=== PATIENT | male | born 1995 | race Two or more races ===

== ENCOUNTER 2025-01-28 10:14 | Outpatient (AMB) | payer OTHER, SELFPAY ==
--- NOTE | 2025-01-28 08:28 | A.OFFVIS_ITS ---
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 He was previously seen at [facility] and is a newly diagnosed Type 1 diabetic. He would like to go on an insulin pump. An Omnipod have been ordered for him but this requires prior authorization. Diagnosed: 2023 Has polyuria and blurred vision went to ER glucose 700 and was admitted to the hospital. 04/2024 C-peptide 1.8 glucose 399 Charles D 65 insulin antibodies negative islet cell antibodies less than 1.4 Fib 4 score 0.57 Initially diagnosed with T2DM in 2023 Was initially started on treatment with metformin and Lantus. Lantus was discontinued 05/15 and bolus insulin was started. Current regimen: Lantus 27units per day Humalog 7units per meal Dexcom average glucose: [329 ] 14 day continuous glucose monitor report reviewed Glucose Managment indicator [11.2 ] % Days with CGM data [80 ] % TIme in ranges: [85 ] % very high (above 250) [ 11] % high ?(181-250) [3 ] % in range ?(70-180] [ 0] % low (69-55) [1 ] % ?very low (below 54) Interpretation consistently high few mild lows Reports low sugars 3 times in the past Treats lows with soda or candy. Has glucose sensor and rechecks with sensors Family history of T2DM in: Maternal grandmother later in life on insulin, sister with type 2 diabetes Has eyes checked yearly, last eye exam years ago Denies neuropathy Denies kidney disease Denies HLD not on statin Denies CAD. 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 Fib 4 calc previously done by [facility] ruled out fibosis ludy 0-1 2023 [facility] Medical History (Updated 01/28/25 @ 08:37 by Elisabeth Sauceda NP) Type 1 diabetes Newly diagnosed type 1 diabetes mellitus Surgical History (Updated 01/28/25 @ 10:21 by JAZZ Pantoja) Hx of hernia repair Family History (Updated 01/15/25 @ 10:12 by JAZZ Pantoja) Maternal Grandmother History of diabetes mellitus Sister History of diabetes mellitus Father No problems noted. Mother No problems noted. Social History (Updated 01/28/25 @ 10:20 by JAZZ Pantoja) Alcohol intake: current Alcohol intake frequency: a few times a week Patient Tobacco Use Status: Current everyday Tobacco user Physical Exam Vital Signs: Last Vital Signs Pulse 115 H 01/28/25 10:18 BP 118/78 01/28/25 10:18 Pulse Ox 95 01/28/25 10:18 Oxygen Delivery Method Room Air 01/28/25 10:18 BMI result Body Mass Index 34.8 Absence of Cushingoid features. Absence of acromegalic features. Neck exam reveals nl size thyroid about 15 gms. No thyroid nodules palpable. No carotid bruits present. Lungs CTA. Heart S1 S2, Reg R/R. No M/R/ G. Skin exam reveals absence of vitiligo or acanthosis nigricans. Abdominal exam reveals Soft NT/ND with NA BS. No organomegaly present. Const Other: Absence of Cushingoid features. Absence of acromegalic features. Neck exam reveals nl size thyroid about 15 gms. No thyroid nodules palpable. No carotid bruits present. Lungs CTA. Heart S1 S2, Reg R/R. No M/R G. Skin exam reveals absence of vitiligo or acanthosis nigricans. No edema Visual exam of foot performed. No ulcerations or open lesions. No inter digit maceration or fissuring. No onychomycosis, no callouses. Sensation intact to monofilament exam. Vibratory sensation is normal with 128 Hz tuning fork. Neck Other: . Extrem Other: Visual exam of foot performed. No ulcerations or open lesions. No onchomycosis, no callouses.Pulses 2 + distally Sensation intact to monofilament exam. Vibratory sensation sensed is intact with 128 Hz tuning fork Results AMB Hemoglobin A1c AMB Hemoglobin A1c 10.9 % Last Edit by JAZZ Pantoja on 01/28/25 10:3 3 Results Reviewed Results Reviewed: Laboratory Last Values Glucose (Clinic) 232 mg/dL (60-115) H 01/28/25 10:23 Assessment & Plan Assessment & Plan (1) Type 1 diabetes: Code(s): E10.9 - Type 1 diabetes mellitus without complications Category: Medical Plan: 29-year-old type 1 diabetic diagnosed in 2023 on basal bolus insulin with the an A1c of:12.1% today in the office. He is interested in going on an omnipod insulin pump. I reviewed the differences between an ilet pump with tubing and an omnipod and he would like to proceed. He will Need prior authorization. I reviewed with patient he would need to see CDE for prepump education and I can order supplies/pods once given the go ahead by the CDE. He will also see RD. He requested a prescription for wegovy which had been sent by previous endo, I advised him I will see, HIs weight has een stable for awhile and h2 is interested in losing weight. New dosing: Lantus 34 units at hs Lispro 8 units tid with meals can increase to 36 units and 12 units pre meal if average not less than 180. If having any lows after a particular meal ,he will not increase that meals pre meal target The patient had an opportunity to ask questions regarding treatment plan. The patient expressed understanding and agreement with the above treatment plan. The patient is aware they should contact our office by phone for worsening glucose readings or for any low blood sugars which may warrant a change in diabetes medication. Compliance is encouraged with medications and any followup testing/consults which may have been ordered. Orders: Orders AMB Hemoglobin A1c Today E10.9 - Type 1 diabetes mellitus without complications Patient Instructions: The patient was counseled to achieve a target A1C of 7% (154 avg). Fasting blood sugars should be 90-130 in the morning and less than 180 two hours after meals. Reviewed the relationship between poor diabetic control and the development of complications. Check your feet daily looking for any signs of infection, drainage, redness, ulceration and seek medical attention if this occurs. Break in shoes gradually and do not wear open-toed shoes or walk stocking footed or barefooted. Coding Diagnoses Type 1 diabetes E10.9
[2025-01-28 10:18] VITALS: BP 118/78; PULSE 115; O2SAT 95; BMI 34.8
[2025-01-28 10:28] LABS: Glucose, Whole Blood 232 mg/dL (60-115)
--- OUTSIDE RECORDS SUMMARY | 2025-01-28 12:02 | XMS_ITS | Clinical Summary ---
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 Assembler Name Role Phone Unavailable Primary Care Provider Unavailabl e Social History Tobacco Use Types Packs/Day Years Used Date Smoking Tobacco: Never Assessed Sex and Gender Information Value Date Recorded Sex Assigned at Not on file Legal Sex Male 1:38 PM EDT Gender Identity Not on file Sexual Orientation Not on file Plan of Treatment Health Maintenance Due Date Last Done Comments DTaP,Tdap,and Td Vaccines (1 - Tdap) 02/29/2012 Hepatitis B Vaccines (1 of 3 - 19+ 3-dose series) 02/29/2012 Depression Screening 05/24/2024 HIV Screening 05/24/2024 Hepatitis C Screening 05/24/2024 Social Influencers of Health Screening 05/24/2024 COVID-19 Vaccine ( - 2023-2 5 season) 2024 Influenza Vaccine (#1) 2024 HIB Vaccines Aged Out No longer eligi ble based on patient's age to complete this topic HPV Vaccines Aged Out No longer eligi ble based on patient's age to complete this topic Hepatitis A Vaccines Aged Out No long er eligible based on patient's age to complete this topic IPV Vaccines Aged Out No longer eligi ble based on patient's age to complete this topic MMR Vaccines Aged Out No longer eligi ble based on patient's age to complete this topic Meningococcal ACWY Vaccine Aged Out N o longer eligible based on patient's age to complete this topic Meningococcal B Vaccine Aged Out No l onger eligible based on patient's age to complete this topic Pneumococcal Vaccine: Pediat rics (0 to 5 Years) and At-Risk Patients (6 to 64 Years) Aged Out No longer eligible b ased on patient's age to complete this topic RSV Immunization Patients Un brent 20 months Aged Out No longer eligible b ased on patient's age to complete this topic Varicella Vaccines Aged Out No longer eligible based on patient's age to complete this topic
== END 2025-01-28 11:06 | disposition home or self-care (01) ==
LOC: HO.ENCR 10:14
PROVIDERS: Visit Provider Nurse Practitioner Adult Health
DX: E10.9 Type 1 diabetes mellitus without complications (principal)

== ENCOUNTER → 2025-01-28 10:14 | Outpatient (BNVA) | payer OTHER, SELFPAY | PROVIDERS: Visit Provider Nurse Practitioner Adult Health | DX: E10.9 Type 1 diabetes mellitus without complications (principal) | CPT/HCPCS: 82947; 83036; 99202 ==

== ENCOUNTER 2025-03-18 13:34 | Outpatient (AMB) | payer OTHER, SELFPAY ==
--- NOTE | 2025-03-18 07:54 | A.OFFVIS_ITS ---
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 Most recent HbA1c: 10.9%, 01/28/2025 Random Glucose- 264 mg/dL, Today Allergies No Known Allergies Allergy (Verified 01/28/25 10:19) Medication List - Last Reconciled 03/18/25 by Elisabeth Sauceda NP acetone (urine) test (Ketostix strips) As directed blood sugar diagnostic (OneTouch Ultra Test strips) As directed blood-glucose meter (Light Sciences OncologyTouch Ultra2 Meter) As directed blood-glucose sensor (Dexcom G7 Sensor device) As directed every 10 days glucagon 3 mg/actuation (Baqsimi) mg intranasal insulin glargine (Lantus Solostar U-100 Insulin) 34-38 units subcutaneously every evening; 30 days insulin lispro subcutaneously 3 times a day; 8-10 units tid before meals 30 days NS lancets (Light Sciences OncologyTouch Delica Plus Lancet) As directed metformin ER 500 mg PO DAILY pen needle, diabetic As directed HPI Comments Details: 30 YO male who is seen in f/u for TYpe 1 dm. He was previously seen at [facility] and is a newly diagnosed Type 1 diabetic. He would like to go on an insulin pump. An Omnipod had been ordered for him through [facility] but this requires prior authorization and he has not had pre pump education. He is scheduled to see both Yecenia FOSS and Liseth Bentley RD Diagnosed: 2023 Has polyuria and blurred vision went to ER glucose 700 and was admitted to the hospital. 04/2024 C-peptide 1.8 glucose 399 Charles D 65 insulin antibodies negative islet cell antibodies less than 1.4 Fib 4 score 0.57 Initially diagnosed with T2DM in 2023 Was initially started on treatment with metformin and Lantus. current diabetes medications: Lantus 34 units at hs he ran out a insulin 3 weeks ago and he reports he left a message that he needed his insulin which I did not receive. Lispro 8 units tid with meals Dexcom average glucose: 307 14 day continuous glucose monitor report reviewed Glucose Managment indicator 10.6 % Days with CGM data 91 % TIme in ranges: 82 % very high (above 250) 11 % high ?(181-250) 7 % in range ?(70-180] 0 % low (69-55) 0 % ?very low (below 54) Coefficient of variance 23% desired less than 36 Interpretation ; poor control with glucose readings running 150 above target postprandial excursions particularly after breakfast Reports low sugars 3 times in the past Treats lows with soda or candy. Has glucose sensor and rechecks with sensors Family history of T2DM in: Maternal grandmother later in life on insulin, sister with type 2 diabetes Has eyes checked yearly, last eye exam years ago Denies neuropathy Denies kidney disease Denies HLD not on statin Denies CAD. 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 Fib 4 calc previously done by [facility] ruled out fibosis ludy 0-1 2023 [facility] Medical History (Updated 01/28/25 @ 08:37 by Elisabeth Sauceda NP) Type 1 diabetes Newly diagnosed type 1 diabetes mellitus Surgical History (Updated 01/28/25 @ 10:21 by JAZZ Pantoja) Hx of hernia repair Family History (Updated 01/15/25 @ 10:12 by JAZZ Pantoja) Maternal Grandmother History of diabetes mellitus Sister History of diabetes mellitus Father No problems noted. Mother No problems noted. Social History (Updated 01/28/25 @ 10:20 by JAZZ Pantoja) Alcohol intake: current Alcohol intake frequency: a few times a week Patient Tobacco Use Status: Current everyday Tobacco user Physical Exam Vital Signs: Last Vital Signs Pulse 121 H 03/18/25 13:35 BP 120/82 03/18/25 13:35 BMI result Body Mass Index 35.2 Const Other: Absence of Cushingoid features. Absence of acromegalic features. Neck exam reveals nl size thyroid about 15 gms. No thyroid nodules palpable. Heart S1 S2, Reg R/R. No M/R G. Skin exam reveals absence of vitiligo or acanthosis nigricans. No edema Visual exam of foot performed. No ulcerations or open lesions. No inter digit maceration or fissuring. No onychomycosis, no callouses. Sensation intact to monofilament exam. Vibratory sensation is normal with 128 Hz tuning fork. Pulses positive distally Results Reviewed Results Reviewed: Laboratory Last Values Glucose (Clinic) 264 mg/dL (60-115) H 03/18/25 13:43 Assessment & Plan Assessment & Plan (1) Type 1 diabetes: Code(s): E10.9 - Type 1 diabetes mellitus without complications Category: Medical Plan: Newly diagnosed type 1 diabetes charles positive. He ran out of his basal insulin for 3 weeks. He will restart basal insulin Lantus 34-38 units in the evening Humalog 8-10 units 15 minutes before the meal He will meet with Yecenia Juárez CDE and Liseth Bentley RD to start the pre pump process. He is interested in Omnipod We spent the bulk of today's visit discussing the targets he needs to achieve to prevent diabetic complications. The patient had an opportunity to ask questions regarding treatment plan. The patient expressed understanding and agreement with the above treatment plan. The patient is aware they should contact our office by phone for worsening glucose readings or for any low blood sugars which may warrant a change in diabetes medication. Compliance is encouraged with medications and any followup testing/consults which may have been ordered. Medications: New insulin glargine (Lantus Solostar U-100 Insulin) 34-38 units subcutaneously every evening; 30 days 12 mL 6RF insulin lispro subcutaneously 3 times a day; 8-10 units tid before meals 30 days 6 mL 3RF NS pen needle, diabetic As directed qid 200 ea 3RF blood-glucose sensor (Dexcom G7 Sensor device) As directed every 10 days 3 ea 6RF Coding Level of Care Code Est Pt Level 4 (54075) Complex EM visit Add On G2211 Diagnoses Type 1 diabetes E10.9 Time Spent (min) 30 Comment Time spent reviewing labs/provider notes, face to face, chart doc
[2025-03-18 13:35] VITALS: BP 120/82; PULSE 121; BMI 35.2
--- OUTSIDE RECORDS SUMMARY | 2025-03-18 13:44 | XMS_ITS | Clinical Summary ---
Author Organization [facility] ity Address [address] [place] [address] Care Team Providers Care Cheese Wrapper Name Role Phone Unavailable Primary Care Provider [...] - 2023-2 5 season) 2024 Influenza Vaccine (Season Ended) 2025 HIB Vaccines Aged Out No longer eligi [...]
[2025-03-18 14:10] LABS: Glucose, Whole Blood 264 mg/dL (60-115)
== END 2025-03-18 14:01 | disposition home or self-care (01) ==
LOC: HO.ENCR 13:35
PROVIDERS: Visit Provider Nurse Practitioner Adult Health
DX: E10.9 Type 1 diabetes mellitus without complications (principal)
CPT/HCPCS: 99214; G2211

== ENCOUNTER → 2025-03-18 13:34 | Outpatient (BNVA) | payer OTHER, SELFPAY | PROVIDERS: Visit Provider Nurse Practitioner Adult Health | DX: E10.9 Type 1 diabetes mellitus without complications (principal); Z79.4 Long term (current) use of insulin | CPT/HCPCS: 82947; 99212 ==

== ENCOUNTER 2025-03-27 13:04 | Outpatient (AMB) | payer OTHER, SELFPAY ==
--- NOTE | 2025-03-27 13:54 | MHC.AMDMED ---
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 Required: No Accompanied by: Self / Same As Patient Allergies No Known Allergies Allergy (Verified 01/28/25 10:19) HPI Comprehensive Diabetes Asmnt Most Recent Diabetes Results: No Data to Display [facility] Medical History (Updated 01/28/25 @ 08:37 by Elisabeth Sauceda NP) Type 1 diabetes Newly diagnosed type 1 diabetes mellitus Surgical History (Updated 01/28/25 @ 10:21 by JAZZ Pantoja) Hx of hernia repair Family History (Updated 01/15/25 @ 10:12 by JAZZ Pantoja) Maternal Grandmother History of diabetes mellitus Sister History of diabetes mellitus Father No problems noted. Mother No problems noted. Social History (Updated 01/28/25 @ 10:20 by JAZZ Pantoja) Alcohol intake: current Alcohol intake frequency: a few times a week Patient Tobacco Use Status: Current everyday Tobacco user Assessment & Plan Assessment & Plan (1) Type 1 diabetes: Code(s): E10.9 - Type 1 diabetes mellitus without complications Plan: Pump Assessment: Type of DM: type 1 Dx at age: 29 Previous DKA: denies Current Insulin Rx: MDI Patient takes insulin as prescribed: yes Patient? checks BG with dexcom G7 Downloaded meter today? yes Patient? reports glycemic control as: poor Most recent Hgb A1C: 10.2% Frequency of low BG: rarely Low BG treatment: juice Frequency of high BG: daily Does patient check Ketones? no Patient reports he does have ketone strips at home. Reviewed with patient rules about testing for ketones. Written instructions given to patient in visit summary Has pt been on a pump in the past? no Reviewed insulin pump basics today with Patient. Explained pros and cons of insulin pumps. Showed pt various pumps, infusion sets, and cgms currently available. Reviewed need to wear pump 24/7 and need to change infusion set every 3 days. Also stressed importance of frequent BG checks, 4x daily minimum or use pump that is integrated with CGM.? TDD:56 units Patient demonstrated motivation for continued insulin pump education and understands the need to complete education prior to starting insulin pump for best outcome. Pt would like to go with Omnipod 5 Carb Counting Basic Patient presents for appointment carbohydrate counting education. Reviewed the basic principles of carbohydrate counting.? Insulin to carb ratio, and insulin sensitivity factor calculated based on rule of 450 for insulin to carb ratio, and rule of 1500 for insulin sensitivity factor. Instructed patient on the importance of accurate calculation of the amount of carbs per meal for optimal glucose control Reviewed how to calculate mealtime bolus with insulin to carb ratio Reviewed how to calculate correction dose with insulin sensitivity factor Insulin to Carbohydrate ratio: 1:8 Correction factor:1:27 Target:140 mg/dL Boluscalc qian downloaded on Pt's cell phone Patient given healthy plate handout, for resource for carbohydrate counting Encourage patient to fill out food logs, estimating carbohydrates at meals, noting glucose number prior to meal, and how many units of insulin taken prior to meals Pt able to calculated needed insulin based on estimated carbohydrate content Instructed patient that there may need to be adjustment to insulin to carb ratio and sensitivity factor based on blood glucose trends. Portions of this note were created using voice recognition software, please excuse any words or phrases that may have been misinterpreted. Patient Instructions: DIABETES PROBLEMS HOMECARE INSTRUCTIONS? for High Blood Sugar and When to Test for Ketones Hyperglycemia is the technical term for high blood glucose (blood sugar). High blood sugar happens when the body has too little insulin or when the body can't use insulin properly. What causes hyperglycemia? A number of things can cause hyperglycemia: If you have type 1, you may not have given yourself enough insulin. ? If you have type 2, your body may have enough insulin, but it is not as effective as it should be. You ate more than planned or exercised less than planned. You have stress from an illness, such as a cold or flu. You have other stress, such as family conflicts or school or dating problems. How to lower your blood sugar level. ? Take medications as directed by physician. ? Drink extra water or noncaffeinated, nonsugared drinks to prevented hydration. ? Exercise if you are not sick However, if your blood sugar is above 250 mg/dl, check your urine for ketones. If you have ketones, do not exercise Exercising when ketones are present may make your blood sugar level go even higher. You'll need to work with your doctor to find the safest way for you to lower your blood sugar level. Regularly check blood sugar or urine for sugar and acetone during illness. Diabetic ketoacidosis (DKA) Is serious condition that can lead to diabetic coma (passing out for a long time) or even . When your cells don't get the glucose they need for energy, your body begins to burn fat for energy, which produces ketones. Ketones are chemicals that the body creates when it breaks down fat to use for energy. The body does this when it doesn?t have enough insulin to use glucose, the body?s normal source of energy. When ketones build up in the blood, they make it more acidic. They are a warning sign that your diabetes is out of control or that you are getting sick. Symptoms of Diabetic Ketoacidosis (DKA) ? DKA usually develops slowly. But when vomiting occurs, this life-threatening condition can develop in a few hours. Early symptoms include the following: ? Thirst or a very dry mouth ? Frequent urination ? High blood glucose (blood sugar) levels ? High levels of ketones in the urine ? Then, other symptoms appear: ? Constantly feeling tired ? Dry or flushed skin ? Nausea, vomiting, or abdominal pain ? (Vomiting can be caused by many illnesses, not just ketoacidosis. If vomiting continues for more than 2 hours, contact your health care provider.) ? Difficulty breathing ? Fruity odor on breath ? A hard time paying attention, or confusion When should you test for ketones? It is advisable to check for ketones under the following conditions when: Your blood glucose is higher than 250mg/dl. Feeling nauseated, throwing up, or have pains in your abdominal region. Have a cold or flu. Have general body fatigue. Feel thirsty or have a very dry mouth. Have flushed skin. Have a fruity breath or a hard time breathing. You feel perplexed or in fog. How to Test Urine for Ketones You can detect ketones with a simple urine test using a test strip, similar to a blood testing strip. Ask your health care provider when and how you should test for ketones. Many experts advise to check your urine for ketones when your blood glucose is more than 250 mg/dl. When you are ill (when you have a cold or the flu, for example), check for ketones every 4 to 6 hours. And check every 4 to 6 hours when your blood sugar is more than 250 mg/dl. Also, check for ketones when you have any symptoms of DKA. How to lower your blood sugar level. ? Take medications as directed by physician. ? Drink extra water or noncaffeinated, nonsugared drinks to prevented hydration. ? Exercise if you are not sick However, if your blood sugar is above 250 mg/dl, check your urine for ketones. If you have ketones, do not exercise Exercising when ketones are present may make your blood sugar level go even higher. You'll need to work with your doctor to find the safest way for you to lower your blood sugar level. Regularly check blood sugar or urine for sugar and acetone during illness Coding Level of Care Code Est Pt Level 1 (37589) Diagnoses Type 1 diabetes E10.9
--- OUTSIDE RECORDS SUMMARY | 2025-03-27 15:16 | XMS_ITS | Clinical Summary ---
Author Organization [facility]y Address [address] [place] [address] Care Team Providers Care Manager Intensive Care Unit Name Role Phone Unavailable Primary Care Provider [...]
== END 2025-03-27 13:58 | disposition home or self-care (01) ==
LOC: HO.ENCR 13:05
PROVIDERS: Visit Provider Registered Nurse Diabetes Educator
DX: E10.9 Type 1 diabetes mellitus without complications (principal)

== ENCOUNTER → 2025-03-27 13:04 | Outpatient (BNVA) | payer OTHER, SELFPAY | PROVIDERS: Visit Provider Registered Nurse Diabetes Educator | DX: E10.9 Type 1 diabetes mellitus without complications (principal); Z79.4 Long term (current) use of insulin; Z96.41 Presence of insulin pump (external) (internal) | CPT/HCPCS: 99211 ==

== ENCOUNTER 2025-04-28 09:00 | Outpatient (AMB) | payer OTHER, SELFPAY ==
--- NOTE | 2025-04-28 09:02 | A.OFFVIS_ITS ---
VS Expanded 04/28/25 09:16 04/28/25 09:27 Height 5 ft 9 in 5 ft 9 in Weight 234 lb 12.677 oz 235 lb BMI 34.7 34.7 Intake Visit Reasons: T2DM Allergies No Known Allergies Allergy (Verified 01/28/25 10:19) Nutrition Presentation Details: Pt presents for MNT for T1DM Pt reports limited understanding regarding carbohydrates/portion sizes/ Pt has many questions regarding glucose sensors and differences between gluc sensor and finger sticks. He is concerned about hypoglycemic events. Pt was advised on the difference between both particularly if rapid glucose changes are happening and was advised on the importance of confirming any hypoglycemic events by finger stick and treating hypoglycemia by following rule of 15. Today we reviewed basic carbohydrate counting during this visit. FFK-Gwolngs-Gl.Jeor Equation Height: 5 ft 9 in Weight: 235 lb Resting Metabolic Rate: 2006.81 Calculated Activity Level: Sedentary Calories Needed to Maintain Weight: 2409.37 Diagnosis Nutrition problem #1: food nutri know defi As related to (etiology) #1: diagnosis (type 1 DM dx at age 29) As evidenced by (sign/symptom) #1: knowledge deficit of diet [facility] Medical History (Updated 01/28/25 @ 08:37 by Elisabeth Sauceda NP) Type 1 diabetes Newly diagnosed type 1 diabetes mellitus Surgical History (Updated 01/28/25 @ 10:21 by JAZZ Pantoja) Hx of hernia repair Family History (Updated 01/15/25 @ 10:12 by JAZZ Pantoja) Maternal Grandmother History of diabetes mellitus Sister History of diabetes mellitus Father No problems noted. Mother No problems noted. Social History (Updated 01/28/25 @ 10:20 by JAZZ Pantoja) Alcohol intake: current Alcohol intake frequency: a few times a week Patient Tobacco Use Status: Current everyday Tobacco user Assessment & Plan Assessment & Plan (1) Type 1 diabetes: Code(s): E10.9 - Type 1 diabetes mellitus without complications Category: Medical Plan: Wt: 107 Kg ( 05/16 ) Est kcal needs as per MSJ: 2400 (40% carb, 30% protein/fat) Est fluid needs as per 25-30 ml/d: 3200 Est prot per day as per 1 g/kg bw: 100- Recommend fiber intake : 8-10 g per day and gradually increase to 25-28 g per day for women and 35-38 g for men or as tolerated Recommend sodium intake per day : less than 2300 mg Educated patient on: ( R = reviewed V = verbalizes understanding N/R = needs review N/A = not applicable * Food sources of carbohydrate, adequate serving sizes and its role in various health conditions: R * Differences between complex carbohydrates a simple carbohydrates, role of fiber in diet: R * Lean protein sources of foods: R * Differences between types of fats and role in diet (mono on saturated fat fatty acids, saturated fatty acids, trans fats): R V N/R * Food sources of sodium in salt and healthy modifications for heart health in kidney health: R V R/V * Vitamins and minerals: R V N/R * Healthy plate method concept: R * Physical activity: Benefits a precaution: R V N/R * Hypoglycemia protocol (rule of 15): R * Dietary prevention of Hyperglycemia: R Patient Instructions: Work on measuring portion sizes and counting total carbohydrate at dinner time , goal less than 100 g total carb at dinner for now follow healthy plate method Choose water, low sugar beverages and choose foods lower in fat (baked vs fried starches in particular) Coding Level of Care Code Nutr Indiv Intake (75485) Diagnoses Type 1 diabetes E10.9 Time Spent (min) 30
[2025-04-28 09:16] VITALS: BMI 34.7
--- OUTSIDE RECORDS SUMMARY | 2025-04-28 09:21 | XMS_ITS | Clinical Summary ---
Author Organization [facility] ity Address [address] [place] [address] Care Team Providers Care Forest Ecology Professor Name Role Phone Unavailable Primary Care Provider [...]
[2025-05-08 15:22] VITALS: BMI 34.7
== END 2025-04-28 09:47 | disposition home or self-care (01) ==
LOC: HO.ENCR 09:01
PROVIDERS: Visit Provider Dietitian, Registered
DX: E10.9 Type 1 diabetes mellitus without complications (principal)

== ENCOUNTER → 2025-04-28 09:00 | Outpatient (BNVA) | payer OTHER, SELFPAY | PROVIDERS: Visit Provider Dietitian, Registered | DX: E10.9 Type 1 diabetes mellitus without complications (principal); Z71.3 Dietary counseling and surveillance | CPT/HCPCS: 97802 ==

== ENCOUNTER 2025-06-11 10:11 | Outpatient (AMB) | payer OTHER, SELFPAY ==
[2025-06-11 10:27] VITALS: BMI 35.4
--- NOTE | 2025-06-11 10:27 | A.OFFVIS_ITS ---
VS Expanded 06/11/25 10:27 Height 5 ft 9 in Weight 239 lb 6.752 oz BMI 35.4 Intake Visit Reasons: T1DM Allergies No Known Allergies Allergy (Verified 01/28/25 10:19) Nutrition Presentation Details: Pt presents for MNT f/u for T1DM, Pt reports working on gradual diet modifications. Understands carbohydrate counting: yes- however reports challenges due to tasting foods when cooking /baking or when choosing foods away from home, typically higher fat foods BG: no download available at time of the appt Pt needs review regarding relationship of high fat/carb food and BG level [facility] Medical History (Updated 01/28/25 @ 08:37 by Elisabeth Sauceda NP) Type 1 diabetes Newly diagnosed type 1 diabetes mellitus Surgical History (Updated 01/28/25 @ 10:21 by JAZZ Pantoja) Hx of hernia repair Family History (Updated 01/15/25 @ 10:12 by JAZZ Pantoja) Maternal Grandmother History of diabetes mellitus Sister History of diabetes mellitus Father No problems noted. Mother No problems noted. Social History (Updated 01/28/25 @ 10:20 by JAZZ Pantoja) Alcohol intake: current Alcohol intake frequency: a few times a week Patient Tobacco Use Status: Current everyday Tobacco user Assessment & Plan Assessment & Plan (1) Type 1 diabetes: Code(s): E10.9 - Type 1 diabetes mellitus without complications Category: Medical Plan: Wt: 107 Kg ( 05/16 ), 108,6 kg (06/16) Est kcal needs as per MSJ: 2400 (40% carb, 30% protein/fat) Est fluid needs as per 25-30 ml/d: 3200 Est prot per day as per 1 g/kg bw: 100- Recommend fiber intake : 8-10 g per day and gradually increase to 25-28 g per day for women and 35-38 g for men or as tolerated Recommend sodium intake per day : less than 2300 mg Educated patient on: ( R = reviewed V = verbalizes understanding N/R = needs review N/A = not applicable * Food sources of carbohydrate, adequate serving sizes and its role in various health conditions: R * Differences between complex carbohydrates a simple carbohydrates, role of fiber in diet: R * Lean protein sources of foods: R * Differences between types of fats and role in diet (mono on saturated fat fatty acids, saturated fatty acids, trans fats): R basic and relationship of fats to insulin resistance leading to elevated bg 4-6 hr after meals * Food sources of sodium in salt and healthy modifications for heart health in kidney health: R V R/V * Vitamins and minerals: R V N/R * Healthy plate method concept: R * Physical activity: Benefits a precaution: R V N/R * Hypoglycemia protocol (rule of 15): R * Dietary prevention of Hyperglycemia: R Patient Instructions: Choose low fat food options when eating out , ex have sand/burger and salad vs fries, working on lowering total fat intake Coding Level of Care Code Nutr Indiv Subseq (58091) Diagnoses Type 1 diabetes E10.9 Time Spent (min) 30
--- OUTSIDE RECORDS SUMMARY | 2025-06-11 11:22 | XMS_ITS | Clinical Summary ---
Author Organization [facility] ity Address [address] [place] [address] Care Team Providers Care Convertible Power Shovel Operator Name Role Phone Unavailable Primary Care Provider [...] of 3 - 19+ 3-dose series) 02/29/2012 HIV Screening 05/24/2024 Hepatitis C Screening 05/24/2024 Social Influencers of Health Screening 05/24/2024 COVID-19 Vaccine (1 - 2023-2 5 season) 2024 Depression Screening 10/23/2024 Influenza Vaccine (#1) 2025 HIB Vaccines Aged Out No longer [...] 5 Years) and At-Risk Patients (6 to 49 Years) Aged Out No longer eligible b ased on patient's age to complete this topic RSV Immunization Patients Un brent 20 months Aged Out No longer eligible b ased on patient's age to complete this topic Varicella Vaccines Aged Out No longer eligible based on patient's age to complete this topic
--- OUTSIDE RECORDS SUMMARY | 2025-06-11 11:22 | XMS_ITS | Clinical Summary ---
Author Organization [facility] Address [address] [address] Phone Care Team Providers Care Medical Social Worker Name Role Phone Unknown, Unknown Primary Care Provider Merced labjay Allergies No known active allergies Medications blood sugar diagnostic Strp strips 1 each by Miscellaneous route 4 (four) times a day before meals and nightly. 100 strip 05/18/20 24 Active blood-glucose meter kit Use as instructed 1 kit 05/18/20 24 Active lancets 26 gauge Misc Inject 1 each into the skin 4 (four) times a day before meals and nightly. 100 each 05/18/20 24 Active metFORMIN (GLUCOPHAGE-XR) 500 MG 24 hr tablet Take 1 tablet (500 mg total) by mouth daily with dinner. 30 tablet 05/18/20 24 Active blood-glucose sensor (DEXCOM G7 SENSOR) DeviIndications:T ype 1 diabetes mellitus with hyperglycemia Apply to the skin every 10d to be used for continuous glucose monitoring 9 each 3 05/31/20 24 Active glucagon 3 mg/actuation SpryIndications:T ype 1 diabetes mellitus with hyperglycemia 1 spray by Nasal route once as needed (hypoglycemia and unable to take po). 3 each 11 05/31/20 24 Active acetone, urine, test (KETONE URINE TEST) StrpIndications:T ype 1 diabetes mellitus with hyperglycemia To be used for ketone monitoring if BG > 250 mg x 2 as per physician instructions 100 strip 4 05/31/20 24 Active insulin lispro (HUMALOG KWIKPEN INSULIN) 100 unit/mL injection penIndications:Ty pe 1 diabetes mellitus with hyperglycemia Inject SC TID based on meal size and physician dosing scale ( max 30 units/day) 15 mL 3 06/06/20 24 Active insulin pen needles, disposable, 32 gauge x 1/4 NdleIndications:T ype 1 diabetes mellitus with hyperglycemia To be used with QID injections 300 each 4 07/29/20 24 Active blood-glucose sensor (DEXCOM G7 SENSOR) Florina 1 each by Miscellaneous route Every 10 Days. 9 each 4 09/05/20 24 025 Active OMNIPOD 5 G6-G7 INTRO KT,GEN5, CrtgIndications:D iabetes mellitus type 1 Inject 1 each under the skin every 3 (three) days. 1 each 01/01/20 25 Active OMNIPOD 5 G6-G7 PODS, GEN 5, CrtgIndications:D iabetes mellitus type 1 Inject 1 each under the skin every 3 (three) days. 30 each 3 01/19/20 25 Active insulin glargine 100 unit/mL (3 mL) InPn injection pen Inject 22 Units under the skin nightly at bedtime. 21 mL 3 01/19/20 25 Active tirzepatide, weight loss, (ZEPBOUND) 2.5 mg/0.5 mL subcutaneous penIndications:Cl ass 2 obesity with body mass index (BMI) of 36.0 to 36.9 in adult, unspecified obesity type, unspecified whether serious comorbidity present Inject 0.5 mL (2.5 mg total) under the skin every 7 days. 2 mL 11 01/19/20 25 026 Active Active Problems Problem Noted Date Diagnosed Date Hyperglycemia 05/17/2024 Social History Tobacco Use Types Packs/Day Years Used Date Smoking Tobacco: Never Assessed Education Answer Date Recorded Are you interested in more education? Not on fern e 05/17/2024 Are you concerned about learning? Not on file 05/17/2024 No 05/17/2024 No 05/17/2024 Digital Access Answer Date Recorded No 05/17/2024 No 05/17/2024 Reliable internet access at home? Not on file 05/17/2024 Device with a working camera? Not on file Intimate Partner Violence Answer Date R ecorded Are you denied basic needs s uch as food, clothing, or medical care? No 05/17/2024 In the past 12 months have y ou been in a relationship with a person who hurts, threatens, or tries to control you? No 05/17/2024 Are you denied basic needs s uch as food, clothing, or medical care? No 05/17/2024 In the past 12 months have y ou been in a relationship with a person who hurts, threatens, or tries to control you? No 05/17/2024 Sex and Gender Information Value Date Recorded Sex Assigned at Male 05/17/2024 8:46 PM EDT Legal Sex Male 5:46 PM EDT Gender Identity Male 05/17/2024 8:46 PM EDT Sexual Orientation Straight 05/17/2024 8: 48 PM EDT Last Filed Vital Signs Vital Sign Reading Time Taken Comments Blood Pressure 120/75 09/05/2024 2:30 PM EST Pulse 94 09/05/2024 2:30 PM EST Temperature 36.6 C (97.9 F) 05/18/2024 3:04 PM EDT Respiratory Rate 16 05/18/2024 5:15 PM EDT Oxygen Saturation 99% 09/05/2024 2:30 PM EST Inhaled Oxygen Concentration - - Weight 109.5 kg (241 lb 7 oz) 09/05/2024 2:30 PM EST Height 174 cm (5' 8.5 ) 06/07/2024 4:35 PM EDT Body Mass Index 36.18 06/07/2024 4:35 PM EDT Plan of Treatment Health Maintenance Due Date Last Done Comments Adult Td,Tdap Booster 1993 DEPRESSION SCREENING 2005 SMOKING Hx and SMOKELESS TOBACCO SCREENING 2006 HEPATITIS C SCREENING 2011 HIV ONE-TIME SCREENING (18-6 5 YEARS) 2011 LIPID PANEL 2011 PNEUMOCOCCAL VACCINES (0-49 years) (1 of 2 - PCV) 02/29/2012 DIABETIC EYE EXAM 05/26/2024 URINE MICROALBUMIN/CREATININ E RATIO 05/26/2024 COVID-19 VACCINE (1 - 2023-2 5 season) 2024 HEMOGLOBIN A1C 12/06/2024 09/05/2024, 05/18/2024 BLOOD PRESSURE 03/05/2025 09/05/2024 CREATININE LEVEL 05/18/2025 05/18/2024, 05/17/2024 HEPATITIS A VACCINES Aged Out No long er eligible based on patient's age to complete this topic HIB VACCINES Aged Out No longer eligi ble based on patient's age to complete this topic MENINGOCOCCAL VACCINES (ACWY) Aged Out No longer eligible based on patient's age to complete this topic MENINGOCOCCAL VACCINES (B) Aged Out N o longer eligible based on patient's age to complete this topic Medical Devices Not on file Procedures Procedure Name Priority Date/Time Associated Diagnosis Comments POCT HEMOGLOBIN A1C Routine 09/05/2024 2 :16 PM EST BASIC METABOLIC PANEL STAT 05/18/2024 9:22 AM EDT from Last 3 Months or Most Recently Relevant to Health Maintenance Results * (ABNORMAL) POCT Hemoglobin A1c (09/05/2024 2:16 PM EST) HGB A1C 8.4(H) 4.2 - 5.6 % [facility] Comment:HbA1c levels 5.7-6.4 % represent pre-diabetes, indicating impaired glucose control and an increased risk of developing diabetes. The diagnostic HbA1c level for diabetes is 6.5% or greater. HbA1c levels <4.2% may indicate a hemoglobinopathy or anemia, and an alternative method is recommended to monitor glucose control. 09/05/2024 2:16 PM EST 09/05/2024 2:46 PM EST Latasha Montejo MD, PhD POINT OF CARE TEST ORDERABLES Final Result [address] [address] * (ABNORMAL) Basic metabolic panel (05/18/2024 9:22 AM EDT) SODIUM 138 136 - 145 mmol/L [facility] POTASSIUM 3.8 3.4 - 5.1 mmol/L [facility] CHLORIDE 101 98 - 107 mmol/L [facility] Comment: CO2 23 22 - 31 mmol/L [facility] BUN 14 6 - 23 mg/dL [facility] CREATININE 0.73 0.50 - 1.20 mg/dL [facility] Comment: GLUCOSE 313(H) 70 - 100 mg/dL [facility] CALCIUM 8.5(L) 8.8 - 10.7 mg/dL [facility] EGFR >120 >59 mL/min/1.7 3m2 [facility] Comment: Estimated glomerular filtration rate calculated using the CKD-EPI refit equation. ANION GAP 14 7 - 17 mmol/L [facility] Comment: Blood 05/18/2024 9:22 AM EDT 05/18/2024 9:33 AM EDT us Adelina Desir PA-C LAB BLOOD ORDERABLES Final Re sult Performing Organization Address City/State/[facility] Co de Phone Number [facility] [address] [place] [phone] from Last 3 Months or Most Recently Relevant to Health [place] [address] [place] [address] [place] [place] [address] [facility] [place] [id number] Care Teams Medical Social Worker Relationship Specialty Start Date End Date Unknown, Unknown, PCP - General 05/17/24 Additional Source Comments The information contained in this document represents components of the legal health record. It is not the complete legal health record.[facility]
== END 2025-06-11 10:57 | disposition home or self-care (01) ==
LOC: HO.ENCR 10:12
PROVIDERS: Visit Provider Dietitian, Registered
DX: E10.9 Type 1 diabetes mellitus without complications (principal)

== ENCOUNTER → 2025-06-11 10:11 | Outpatient (BNVA) | payer OTHER, SELFPAY | PROVIDERS: Visit Provider Dietitian, Registered | DX: E10.9 Type 1 diabetes mellitus without complications (principal) | CPT/HCPCS: 97803 ==

== ENCOUNTER 2025-07-26 22:49 | Emergency (ER) | payer OTHER, SELFPAY ==
--- NOTE | ~2025-07-26 | CT_ITS ---
CLINICAL HISTORY: abd pain, hx volvulu and hernias CT abdomen and pelvis with contrast Comparison: None provided Findings: Heart size is normal. The left lung is hyperlucent and diminutive. The left pulmonary artery is diminutive. Left thoracic cavity is small. Diffuse fatty infiltration of the liver. Liver is enlarged. Adrenal glands, kidneys, pancreas and gallbladder unremarkable. There is a large wide necked ventral hernia containing the stomach, tail of the pancreas, the spleen, the majority of the bowel loops and the portal splenic confluence. No bowel obstruction, pneumoperitoneum, or pneumatosis. No bowel wall thickening. No ascites. No acute fracture. IMPRESSION: No acute findings. Large wide neck ventral hernia containing stomach, tail of pancreas, spleen and majority of bowel loops. Diminutive hyperlucent left lung with diminutive left pulmonary artery. Fatty infiltration of the liver. This document has been electronically signed by: Chuck Maldonado MD on 07/27/2025 03:08:57
[2025-07-26 23:00] VITALS: BP 145/90; PULSE 98; RESP 14; TEMP 36.7; O2SAT 96; BMI 35.4
[2025-07-26 23:32] LABS: Hematocrit 42.7 % (42.0-52.0); Hemoglobin 15.2 g/dl (14.0-18.0); Imm Gran Abs Auto 0.04 X10*3/uL (0.00-0.03); Imm Gran Pct Auto 0.3 % (0.0-0.4); Lymphocytes Absolute Auto 1.9 X10*3/uL (1.2-4.9); MANUAL DIFF FLAG NO; Mean Corpuscular HGB Conc 35.6 g/dl (31.0-36.0); Mean Corpuscular Hemoglobin 29.5 pg (27.0-33.0); Mean Corpuscular Volume 82.9 fL (80.0-98.0); NRBC Abs Auto 0.000 X10*3/uL (0.0-0.012); NRBC Pct Auto 0.0 /100WBC (0.0-0.2); Platelet Count 291 X10*3/uL (160-400); Red Blood Count 5.15 X10*6/uL (4.60-5.80); White Blood Count 12.9 X10*3/uL (4.8-10.8)
--- NOTE | 2025-07-26 23:32 | MHC.EDTECH ---
Patient brought into triage areas, labs,and urine sample obtained and sent to lab.
[2025-07-26 23:43] LABS: Appearance Urine Clear; Glucose Urine UA 250 mg/dL (Negative); PH 5.5 (5.0-9.0); Specific Gravity - Urine 1.025 (1.005-1.025); UMIC TRIGGER UACC YES
[2025-07-26 23:45] LABS: UACC Culture Trigger YES
[2025-07-26 23:48] LABS: Alanine Aminotransferase 33 U/L (0-40); Albumin Level 4.5 g/dL (3.5-5.0); Alkaline Phosphatase 70 U/L (39-117); Anion Gap 13 (12-20); Aspartate Amino Transferase 18 U/L (5-37); Blood Urea Nitrogen 10 mg/dL (9-16); Calcium 9.4 mg/dL (8.4-10.2); Carbon Dioxide 23 mmol/L (22-29); Chloride 105 mmol/L (96-108); Creatinine Clr Calc Pharmacy 192.4; Estimated Glomerular Filt Rate > 60; Lipase 11 U/L (8-78); Magnesium 1.9 mg/dL (1.6-2.6); Potassium 3.7 mmol/L (3.3-5.1); Sodium 137 mmol/L (135-145); Total Protein 7.5 g/dL (6.5-8.0)
[2025-07-27 01:47] VITALS: BP 119/75; PULSE 101; RESP 20; TEMP 36.8; O2SAT 97
[2025-07-27] MEDS: iohexoL 350 MG/ML 100 ML INFUS..BTL IV (02:06)
--- OUTSIDE RECORDS SUMMARY | 2025-07-27 02:50 | XMS_ITS | Clinical Summary ---
Author Organization [facility] Address [address] [address] Phone Care Team Providers Care Licensed Occupational Therapist Name Role Phone Unknown, Unknown Primary Care [...] EXAM 05/26/2024 URINE MICROALBUMIN/CREATININ E RATIO 05/26/2024 HEMOGLOBIN A1C 12/06/2024 09/05/2024, 05/18/2024 BLOOD PRESSURE 03/05/2025 09/05/2024 CREATININE LEVEL 05/18/2025 05/18/2024, 05/17/2024 INFLUENZA VACCINE (#1) 2025 COVID-19 VACCINE (2024-2 6 season) 2025 HEPATITIS A VACCINES Aged Out No long [...] HGB A1C 8.4(H) 4.2 - 5.6 % [facility] Comment:HbA1c levels 5.7-6.4 % represent pre-diabetes, indicating impaired glucose control and an increased risk of developing diabetes. The diagnostic HbA1c level for diabetes is 6.5% or greater. HbA1c levels <4.2% may indicate a hemoglobinopathy or anemia, and an alternative method is recommended to monitor glucose control. 09/05/2024 2:16 PM EST 09/05/2024 2:46 PM EST us Latasha Montejo MD, PhD POINT OF CARE TEST ORDERABLES Final Result [address] [address] * (ABNORMAL) Basic metabolic panel (05/18/2024 9:22 AM EDT) SODIUM 138 136 - 145 mmol/L [facility] POTASSIUM 3.8 3.4 - 5.1 mmol/L [facility] CHLORIDE 101 98 - 107 mmol/L [facility] Comment: CO2 23 22 - 31 mmol/L [facility] BUN 14 6 - 23 mg/dL [facility] CREATININE 0.73 0.50 - 1.20 mg/dL [facility] Comment: GLUCOSE 313(H) 70 - 100 mg/dL [facility] CALCIUM 8.5(L) 8.8 - 10.7 mg/dL [facility] EGFR >120 >59 mL/min/1.7 3m2 [facility] Comment: Estimated glomerular filtration rate calculated using the CKD-EPI refit equation. ANION GAP 14 7 - 17 mmol/L [facility] Comment: Blood 05/18/2024 9:22 AM EDT 05/18/2024 9:33 AM EDT Adelina Desir PA-C LAB BLOOD ORDERABLES Final Re sult Performing Organization Address City/State/[facility] Co de Phone Number [facility] [address] [place] [address] from Last 3 Months or Most Recently Relevant to Health Maintenance [place] [address] [facility] Care Teams Licensed Occupational Therapist Relationship Specialty Start Date End Date Unknown, Unknown, PCP - General 05/17/24 Additional Source Comments The information contained in this document represents components of the legal health record. It is not the complete legal health record.[facility]
--- OUTSIDE RECORDS SUMMARY | 2025-07-27 02:50 | XMS_ITS | Encounter Summary ---
Author Organization [facility] Address [address] [facility] [address] [place] [phone] Phone Care Team Providers Care Content Analyst Name Role Phone Unknown, Unknown Primary Care Provider [place] peace Encounter Details Date Type Department Care Team (Late st Contact Info) Description 10/25/2024 Telephone [facility] DI[facility] MEDICINE [address] [place] [phone] Nona Pacheco, PharmD [address] [place] [phone] [email or web address] Social History Tobacco Use Types Packs/Day Years [...] Orientation Straight 05/17/2024 8: 48 PM EDT documented as of this encounter Plan of Treatment Not on file documented as of this encounter Visit Diagnoses Not on filedocumented in this encounter Care Teams Content Analyst Relationship Specialty Start Date End Date Unknown, Unknown, PCP - General 05/17/24 documented as of this encounter Additional Source Comments The information contained in this document represents components of the legal health record. It is not the complete legal health record.[facility]
--- OUTSIDE RECORDS SUMMARY | 2025-07-27 02:50 | XMS_ITS | Clinical Summary ---
Author Organization [facility] Address [address] [place] [address] Care Team Providers Care Channel Lip Wetter Name Role Phone Unavailable Primary Care Provider [...] of 3 - 19+ 3-dose series) 02/29/2012 HPV Vaccines (1 - 3-dose SCD M series) 02/29/2020 HIV Screening 05/24/2024 Hepatitis C Screening 05/24/2024 Social Influencers of Health Screening 05/24/2024 Depression Screening 10/23/2024 COVID-19 Vaccine ( - 2023-2 5 season) 2025 Influenza Vaccine (#1) 2025 RSV Immunization Adult Patie nts (1 - 1-dose 75+ series) 02/29/2068 HIB Vaccines Aged Out No longer eligi [...]
--- NOTE | 2025-07-27 03:45 | ED.ABDPAIN ---
HPI - Abdominal Pain General Chief Complaint: Abdominal Pain Stated Complaint: type 1 diabetes/abd pain Time Seen by Provider: 07/27/25 01:27 Source: patient Mode of arrival: ambulatory Limitations: no limitations History of Present Illness ED Provider: Dr. Beata Yusuf HPI narrative: Patient comes to the emergency room complaining of abdominal pain, states that he feels that he has an upset stomach, states that he has some cramps over the umbilical area, no nausea vomiting diarrhea. Patient states that overall he does feel uncomfortable, it has been going on for several weeks, but states that he has been having upset stomach for several days now. Related Data Home Medications ?Medication ?Instructions ?Recorded ?Confirmed acetone (urine) test (Ketostix #25 ea 01/15/25 03/18/25 strips) blood sugar diagnostic (OneTouch #10 ea 01/15/25 03/18/25 Ultra Test strips) blood-glucose meter (OneTouch #1 ea 01/15/25 03/18/25 Ultra2 Meter) glucagon 3 mg/actuation nasal mg intranasal 01/15/25 03/18/25 spray (Baqsimi) lancets 30 gauge (OneTouch Delica #100 ea 01/15/25 03/18/25 Plus Lancet) pen needle, diabetic 32 gauge x #100 ea 01/15/25 03/18/2510/26 Previous Rx's ?Medication ?Instructions ?Recorded blood-glucose sensor (Dexcom G7 #3 ea 03/18/25 Sensor device) insulin lispro 100 unit/mL See Rx Instructions subcut TID 30 03/18/25 subcutaneous pen days #6 mL pen needle, diabetic 32 gauge x #200 ea 03/18/25 Basaglar KwikPen U-100 Insulin 100 See Rx Instructions subcut QPM 30 03/19/25 unit/mL (3 mL) subcutaneous days #12 mL (insulin glargine) insulin pump cart,auto,BT,G6/7 #10 ea 03/27/25 (Omnipod 5 G6-G7 Pods (Gen 5) subcutaneous cartridge) insulin pump cartridge,auto #1 ea 03/27/25 dose,BT,G6/G7 with controller subcutaneous (Omnipod 5 G6-G7 Intro Kit(Gen 5) subcutaneous cartridge and controller) hyoscyamine sulfate 0.125 mg 0.125 mg PO QID PRN dyspepsia #20 07/27/25 disintegrating tablet tabs simethicone 180 mg capsule 180 mg PO BID PRN abdominal 07/27/25 distention #14 caps Allergies Allergy/AdvReac Type Severity Reaction Status Date / Time No Known Allergies Allergy Verified 07/26/25 23:06 Review of Systems Review of Systems Constitutional : No Weight loss, No Fever, No Chills, No Night Sweats, No Fatigue, No Malaise ENT/Mouth : No Hearing loss, No Ear Pain, No Nasal Congestion, No Sinus Pain, No Hoarseness, No sore throat, No Rhinorrhea, No Swallowing Difficulty Eyes: No Eye Pain, No Swelling, No Redness, No Foreign Body, No Discharge, No Vision Changes Cardiovascular : No Chest Pain, No SOB, No Dyspnea on Exertion, No Orthopnea, No Edema, No Palpitations Respiratory : No Cough, No Sputum, No Wheezing, No Smoke Exposure, No Dyspnea Gastrointestinal : Complaining of upset stomach, abdominal cramping, no significant abdominal pain. No Nausea, No Vomiting, No Diarrhea, No Constipation, denies significant abdominal Pain, No Hematochezia, No Melena Genitourinary : no irregular bleeding, No Dysuria, No Urinary Frequency, No Hematuria, No Urinary Incontinence, No Urgency, No Flank Pain, No Urinary Flow Changes, No Hesitancy Musculoskeletal : No joint pain, No Myalgias, No Joint Swelling Skin : No Skin Lesions, No rash Neuro : No Weakness, No Numbness, No Paresthesias, No Loss of Consciousness, No Dizziness, No Headache Psych : No Anxiety/Panic, No Depression, No SI/HI/AH/VH, No Social Issues, Heme/Lymph: No Bruising, No Bleeding,No Lymphadenopathy Endocrine : No Polyuria, No Polydipsia, No Temperature Intolerance [facility] Past Medical History Medical History Type 1 diabetes Newly diagnosed type 1 diabetes mellitus Surgical History (Updated 01/28/25 @ 10:21 by JAZZ Pantoaj) Hx of hernia repair Family History Family History (Updated 01/15/25 @ 10:12 by JAZZ Pantoja) Maternal Grandmother History of diabetes mellitus Sister History of diabetes mellitus Father No problems noted. Mother No problems noted. Social History Social History (Updated 01/28/25 @ 10:20 by JAZZ Pantoja) Alcohol intake: current Alcohol intake frequency: a few times a week Patient Tobacco Use Status: Current everyday Tobacco user Smoked in Last 30 Days: No Use of substances other than those prescribed or required for medical reasons: Yes Substance Use Type: Marijuana Advance Directives: No Advance Directives Information Provided: Yes Do you have a plan to hurt others: No Plan Physical Exam ED Vital Signs: Vital Signs - 24 hr 07/26/25 23:00 07/27/25 01:47 Temperature 98.1 F 98.3 F Pulse Rate 98 101 H Respiratory Rate 14 20 Blood Pressure 145/90 H 119/75 Pulse Oximetry 96 97 Oxygen Delivery Method Room Air Room Air BMI result Body Mass Index 35.4 Course Course Course Narrative: Patient denies nausea vomiting diarrhea, complaining of abdominal upset sensation. Medical Decision Making Medical Decision Making MDM Narrative: My interpretation of labs: Patient's white blood cell count 12.9, bacteria reactive leukocytosis, no electrolyte abnormality, normal LFTs, normal lipase. Patient has a small amount of leukocyte esterase, WBC in the urine, patient denies is hematuria or dysuria or UTI symptoms. At this time, antibiotics was not indicated for UTI CT scan shows that patient has a very large wide necked ventral hernia containing the stomach, tail of the pancreas, spleen and the majority of the bowel loops on the portal splenic confluence. No bowel obstruction, no pneumoperitoneum, no pneumatosis. No bowel wall thickening. I discussed the above-mentioned findings with the patient. At this time, there is no need for an emergent transfer. However, patient will need to be seen by a combination of General surgery and thoracic surgery. Patient has a massive ventral hernia. I discussed with the patient that we can not give him medications to minimally relieved the symptoms. However, patient will likely need surgery. I discussed with the patient that we can help him tried to get an appointment at [facility]. Patient states that he will make his own appointment either at [place] for somewhere in [place]. Patient was given a printout of his radiology report. Differential Diagnosis Differential Diagnoses: The differential diagnosis associated with the presentation includes Admission/Observation Consideration of admission/observation: Escalation of care including admission/observation considered (Referral to [facility] was offered, patient declined) Lab Data [facility] Lab Attestation statement: I reviewed the patient's lab results. 07/26/25 23:25 07/26/25 23:25 Labs: Lab Results 07/26/25 07/26/25 Range/Units 23:25 23:32 WBC 12.9 H (4.8-10.8) X10*3/uL RBC 5.15 (4.60-5.80) X10*6/uL Hgb 15.2 (14.0-18.0) g/dl Hct 42.7 (42.0-52.0) % MCV 82.9 (80.0-98.0) fL MCH 29.5 (27.0-33.0) pg MCHC 35.6 (31.0-36.0) g/dl RDW 12.1 (11.0-16.0) % Plt Count 291 (160-400) X10*3/uL MPV 9.7 (9.4-12.4) fL Immature Gran % (Auto) 0.3 (0.0-0.4) % Neut % (Auto) 76.7 H (45-73) % Lymph % (Auto) 14.8 L (20-40) % [place] % (Auto) 7.5 (2-11) % Eos % (Auto) 0.5 (0-4) % Baso % (Auto) 0.2 (0-2) % Lymph # (Auto) 1.9 (1.2-4.9) X10*3/uL [place] # (Auto) 1.0 (0.1-1.2) X10*3/uL Eos # (Auto) 0.1 (0.0-0.4) X10*3/uL Baso # (Auto) 0.0 (0.0-0.2) X10*3/uL Abs Immat Gran (auto) 0.04 H (0.00-0.03) X10*3/uL Absolute Neuts (auto) 9.9 H (2.0-8.3) x10*3/uL Absolute Nucleated RBC 0.000 (0.0-0.012) X10*3/uL Nucleated RBC % (auto) 0.0 (0.0-0.2) /100WBC Sodium 137 (135-145) mmol/L Potassium 3.7 (3.3-5.1) mmol/L Chloride 105 (96-108) mmol/L Carbon Dioxide 23 (22-29) mmol/L Anion Gap 13 (12-20) BUN 10 (9-16) mg/dL Creatinine 0.67 (0.5-1.4) mg/dL Estim Creat Clear Calc 192.4 Estimated GFR > 60 Random Glucose 210 H (60-115) mg/dL Calcium 9.4 (8.4-10.2) mg/dL Magnesium 1.9 (1.6-2.6) mg/dL Total Bilirubin 0.7 (0.0-1.0) mg/dL Direct Bilirubin 0.2 (0.0-0.5) mg/dL AST 18 (5-37) U/L ALT 33 (0-40) U/L Alkaline Phosphatase 70 (39-117) U/L Total Protein 7.5 (6.5-8.0) g/dL Albumin 4.5 (3.5-5.0) g/dL Lipase 11 (8-78) U/L Urine Color Yellow Urine Appearance Clear Urine pH 5.5 (5.0-9.0) Ur Specific [place] 1.025 (1.005-1.025) Urine Protein Trace (Neg-Trace) mg/dL Urine Glucose (UA) 250 H (Negative) mg/dL Urine Ketones 15 (Negative) mg/dL Urine Blood Negative (Negative) Urine Nitrite Negative (Negative) Ur Leukocyte Esterase Small (1+) H (Negative) Urine RBC 0-2 (0-2) /HPF Urine WBC 21-50 H (0-5) /HPF Ur Squamous Epith Cells 0-2 (0-2) /HPF Urine Bacteria None Seen (None Seen) Hyaline Casts 0-2 (0-2) /LPF Independent Interpretation I performed an independent interpretation of an: CT Scan Radiology Impression Discussion of test interpretation with radiology: I have reviewed the radiologist's reading. Radiologist Impression: Heart size is normal. The left lung is hyperlucent and diminutive. The left pulmonary artery is diminutive. Left thoracic cavity is small. Diffuse fatty infiltration of the liver. Liver is enlarged. Adrenal glands, kidneys, pancreas and gallbladder unremarkable. There is a large wide necked ventral hernia containing the stomach, tail of the pancreas, the spleen, the majority of the bowel loops and the portal splenic confluence. No bowel obstruction, pneumoperitoneum, or pneumatosis. No bowel wall thickening. No ascites. No acute fracture. IMPRESSION: No acute findings. Large wide neck ventral hernia containing stomach, tail of pancreas, spleen and majority of bowel loops. Diminutive hyperlucent left lung with diminutive left pulmonary artery. Fatty infiltration of the liver. Medications Administered Discontinued Medications Generic Name Dose Route Start Last Admin Trade Name Freq PRN Reason Stop Dose Admin Famotidine 20 mg 07/27/25 01:34 07/27/25 01:55 Famotidine/Pf 20 Mg/2 Ml Vial IVPUSH 07/27/25 01:35 20 mg ONCE ONE Administration Sodium Chloride 1,000 mls @ 999 mls/hr 07/27/25 01:34 07/27/25 01:55 Ns IVCONT 07/27/25 02:34 999 mls/hr .Q1H1M ONE Administration Iohexol 100 ml 07/27/25 02:06 07/27/25 02:06 Iohexol 350 Mg/Ml 100 Ml Infus..Btl IV 07/27/25 02:07 85 ml ONCE ONE Administration Morphine Sulfate 2 mg 07/27/25 01:34 07/27/25 01:56 Morphine Sulfate 2 Mg/Ml Cartridge IVPUSH 07/27/25 01:35 2 mg ONCE ONE Administration Protocol Simethicone 160 mg 07/27/25 01:34 07/27/25 01:56 Simethicone 80 Mg Tab.Chew PO 07/27/25 01:35 160 mg ONCE ONE Administration Discharge Plan Discharge Clinical Impression: Ventral hernia, Dyspepsia Patient Disposition: Home, Self-Care Instructions: Acute Abdominal Pain (DC) Additional Instructions: You may chose any thoracic surgeon of your choice. A thoracic surgeon is available at [facility]. [address], [address], in [place], [place]. Please follow-up with your primary care physician tomorrow. If you have any worsening or new symptoms, please return to the emergency room or call 911 Prescriptions: New hyoscyamine sulfate 0.125 mg tablet,disintegrating 0.125 mg PO QID PRN (Reason: dyspepsia) Qty: 20 0RF simethicone 180 mg capsule 180 mg PO BID PRN (Reason: abdominal distention) Qty: 14 0RF No Action insulin glargine [Basaglar KwikPen U-100 Insulin] 100 unit/mL (3 mL) insulin pen See Rx Instructions subcut QPM MDD 38 30 Days Qty: 12 6RF Rx Instructions: 34-38 units daily subcutaneously every evening; (DME) Omnipod 5 G6-G7 Pods (Gen 5) Cartridge See Rx Instructions .Route Qty: 10 6RF Rx Instructions: change every 3 days (DME) Omnipod 5 G6-G7 Intro Kt(Gen5) Cartridge See Rx Instructions .Route Qty: 1 0RF Rx Instructions: As directed change cartridge every 3 days (DME) pen needle, diabetic 32 gauge x 1/4 needle See Rx Instructions .ROUTE .MEDSUPPLY Qty: 100 Rx Instructions: As directed (DME) Ketostix Strip See Rx Instructions .ROUTE .MEDSUPPLY Qty: 25 Rx Instructions: As directed Baqsimi 3 mg/actuation spray,non-aerosol intranasal (DME) lancets [OneTouch Delica Plus Lancet] 30 gauge misc See Rx Instructions .ROUTE QID Qty: 100 Rx Instructions: As directed (DME) OneTouch Ultra Test Strip See Rx Instructions .ROUTE .MEDSUPPLY Qty: 10 Rx Instructions: As directed (DME) blood-glucose meter [OneTouch Ultra2 Meter] Misc See Rx Instructions .ROUTE DIRECTED Qty: 1 Rx Instructions: As directed insulin lispro 100 unit/mL insulin pen See Rx Instructions subcut TID 30 Days Qty: 6 3RF Rx Instructions: subcutaneously 3 times a day; 8-10 units tid before meals (DME) Dexcom G7 Sensor Device See Rx Instructions .ROUTE .MEDSUPPLY Qty: 3 6RF Rx Instructions: As directed every 10 days (DME) pen needle, diabetic 32 gauge x 5/32 needle See Rx Instructions .ROUTE .MEDSUPPLY Qty: 200 3RF Rx Instructions: As directed qid Print Language: [place]
[2025-07-27] MEDS: Lidocaine HCl Viscous 2 % 15 ML SOLUTION MUCOUS MEM (04:14)
[2025-07-27] MEDS: Magnesium Hydrox/Alum Hydrox 30 ML ORAL.SUSP PO (04:14)
[2025-07-27 04:29] VITALS: BP 121/78; PULSE 90; RESP 20; TEMP 36.6; O2SAT 96
[2025-07-27 04:32] VITALS: BP 121/78; PULSE 90; RESP 20; TEMP 36.6; O2SAT 96
== END 2025-07-27 04:59 | disposition home or self-care (01) ==
PROVIDERS: Emergency Provider Emergency Medicine
DX: K43.9 Ventral hernia without obstruction or gangrene (principal); R10.13 Epigastric pain; R25.2 Cramp and spasm; R11.0 Nausea; E11.9 Type 2 diabetes mellitus without complications; Z79.4 Long term (current) use of insulin; Z79.899 Other long term (current) drug therapy; F17.210 Nicotine dependence, cigarettes, uncomplicated
CPT/HCPCS: 36415; 74177; 80053; 81001; 82248; 83690; 83735; 85025; 87086; 96361; 96374; 96375; 99284; 99285; J1308; J2270; Q9967

== ENCOUNTER → 2025-07-27 01:34 | Outpatient (BNV) | payer OTHER, SELFPAY | PROVIDERS: Emergency Provider Emergency Medicine; Visit Provider Radiology Diagnostic Radiology | DX: K43.9 Ventral hernia without obstruction or gangrene (principal); K76.0 Fatty (change of) liver, not elsewhere classified; J98.4 Other disorders of lung; Q25.79 Other congenital malformations of pulmonary artery | CPT/HCPCS: 74177 ==